=== PATIENT | male | born 1940 | race Caucasian/White ===

== ENCOUNTER 2019-05-16 16:23 | Day surgery (SDC) | payer MEDICARE ==
[2019-05-16 16:39] VITALS: BP 113/78
[2019-05-16] MEDS ORDERED: NS 0.9% 1000 ML** 1,000 ML IV ONE (17:30)
--- NOTE | 2019-05-16 17:30 | ED ---
GI/ HPI - HPI Summary HPI Summary: 79-year-old male presents flank pain for the past couple days. States that developed a fever [address] Saucedo who said to come to the ER to be admitted to go the OR. He took a Percocet before coming and his fever is down. He denies any dysuria. No urgency frequency. He is able to urinate without difficulty. States he has pain is manageable now due to the Percocet. Denies any bowel pain. No chest pressures or shortness of breath. He states that he is diabetic and just found out about such. - History of Current Complaint Chief Complaint: EDFlankPain Time Seen by Provider: 05/16/19 17:29 Stated Complaint: FEVER/KIDNEY PAIN PER Pain Intensity: 7 - Allergy/Home Medications Allergies/Adverse Reactions: Allergies Allergy/AdvReac Type Severity Reaction Status Date / Time codeine Allergy Shakes Verified 05/16/19 16:36 PMH/Surg Hx/FS Hx/Imm Hx Endocrine/Hematology History: Reports: Hx Diabetes Denies: Hx Anticoagulant Therapy History: Reports: Hx Kidney Stones Infectious Disease History: No Infectious Disease History: Denies: Traveled Outside the [place] in Last 30 Days - Family History Known Family History: Positive: Non-Contributory - Social History Substance Use Type: Reports: None Smoking Status (MU): Unknown if Ever Smoked Review of Systems Positive: Fever Negative: Chest Pain Negative: Shortness Of Breath Positive: flank pain. Negative: burning All Other Systems Reviewed And Are Negative: Yes Physical Exam Triage Information Reviewed: Yes Vital Signs On Initial Exam: Initial Vitals Temp Pulse Resp BP Pulse Ox 98.1 F 88 18 113/78 95 05/16/19 16:35 05/16/19 16:35 05/16/19 16:35 05/16/19 16:35 05/16/19 16:35 Vital Signs Reviewed: Yes Appearance: Positive: Well-Appearing Skin: Positive: Warm, Dry Head/Face: Positive: Normal Head/Face Inspection Eyes: Positive: Normal, Conjunctiva Clear ENT: Positive: Pharynx normal Respiratory/Lung Sounds: Positive: Clear to Auscultation, Breath Sounds Present Cardiovascular: Positive: Normal, RRR Abdomen Description: Positive: Nontender, Soft, CVA Tenderness (R). Negative: CVA Tenderness (L) Bowel Sounds: Positive: Present Musculoskeletal: Positive: Normal Neurological: Positive: Normal Procedures - Sedation Patient Received Moderate/Deep Sedation with Procedure: No Diagnostics - Vital Signs Vital Signs Temp Pulse Resp BP Pulse Ox 05/16/19 16:35 98.1 F 88 18 113/78 95 - Laboratory Lab Statement: Any lab studies that have been ordered have been reviewed, and results considered in the medical decision making process. GIGU Course/Dx - Course Course Of Treatment: 79-year-old male presents flank pain for the past couple days. States that developed a fever [address] Saucedo who said to come to the ER to be admitted to go the OR. He took a Percocet before coming and his fever is down. He denies any dysuria. No urgency frequency. He is able to urinate without difficulty. States he has pain is manageable now due to the Percocet. Denies any bowel pain. No chest pressures or shortness of breath. He states that he is diabetic and just found out about such. On exam has tenderness of right flank. Currently afebrile. Patient was taken to the OR. - Diagnoses Differential Diagnoses - Male: Pyelonephritis, Ureteral Calculi, Urinary Tract Infection Provider Diagnoses: Fever, Kidney stone on right side Discharge ED - Sign-Out/Discharge Documenting (check all that apply): Patient Departure - Discharge Plan Condition: Stable Disposition: ADMITTED TO [facility] Referrals: Bobby NIÑO,Pillo Zapata [Primary Care Provider] - - Billing Disposition and Condition Condition: STABLE Disposition: Admitted to [facility]
--- NOTE | 2019-05-17 08:40 | OP ---
CC: Dr. Rosales; Dr. Saucedo * DATE OF OPERATION: 05/16/19 - [facility] DATE OF : 44 SURGEON: Crow Saucedo MD ANESTHESIOLOGIST: Dr. Alexander ANESTHESIA: Intravenous sedation. PRE-OP DIAGNOSES: 1. Right hydronephrosis. 2. Obstructing calculus, right ureter. POST-OP DIAGNOSES: 1. Right hydronephrosis. 2. Obstructing calculus, right ureter. 3. Enlarged prostate. OPERATIVE PROCEDURE: Cystoscopy, right retrograde pyelogram, right ureteral stent insertion. COMPLICATIONS: None. STENT USED: 6-Albanian stent, right ureter. SPECIMEN: Urine from right kidney for culture and sensitivity. OPERATIVE FINDINGS: 1. Markedly enlarged prostate. 2. High-grade obstruction, right ureter with a significant amount of cloudy blood- tinged urine backed up in right kidney. POSTOPERATIVE CONDITION: Stable. INDICATIONS: Jonathon Ortiz is a 79-year-old gentleman with a history of right flank pain resulting from obstructing calculus in the right ureter. He had a temperature to 101 earlier today and is now being brought in for urgent right stent insertion to be followed at some point in the near future by shockwave lithotripsy or laser lithotripsy depending on the final position of the calculus. DESCRIPTION OF PROCEDURE: After induction of intravenous sedation, the patient was placed in dorsal lithotomy position. Sequential compression devices were placed and functioning. Initial evaluation revealed a normal-appearing urethra and a markedly enlarged prostate with lateral lobe as well as significant median lobe enlargement. The bladder was examined. Clear efflux was noted from the left orifice. There was no efflux noted from the right orifice suggesting a complete obstruction. A guidewire was introduced into the right ureter. Retrograde pyelogram revealed right hydronephrosis and once the open- ended catheter was advanced into the renal pelvis; there was drainage of large amount of blood-tinged cloudy urine. After aspirating almost 25 to 30 cc of urine from the kidney, specimen was sent for culture and sensitivity. A 6- Albanian stent was introduced and positioned under fluoroscopy with good proximal and distal positioning obtained. A Short catheter was placed with temporary bladder drainage. The patient tolerated the procedure satisfactorily and was transferred back to the recovery area in stable condition. My plan is to bring him back in the next couple of weeks for either a right ureteroscopy with laser or shockwave lithotripsy depending on the postoperative x-ray findings. [id number]/[facility] #: [id number] MTDD
== END 2019-05-16 17:50 | disposition home or self-care (01) ==
LOC: ED 16:23 → OR 17:50
PROVIDERS: ATTEND Urology
DX: N13.2 Hydronephrosis with renal and ureteral calculous obstruction (principal); R50.9 Fever, unspecified; N40.0 Benign prostatic hyperplasia without lower urinary tract symptoms; Z87.442 Personal history of urinary calculi; I48.20 Chronic atrial fibrillation, unspecified; E78.5 Hyperlipidemia, unspecified; R10.31 Right lower quadrant pain; R11.0 Nausea; Z79.01 Long term (current) use of anticoagulants; E11.9 Type 2 diabetes mellitus without complications; Z79.84 Long term (current) use of oral hypoglycemic drugs; R97.20 Elevated prostate specific antigen [PSA]
CPT/HCPCS: 74420; 99284; C1876